=== PATIENT | male | born 1965 | race Caucasian/White ===

== ENCOUNTER 2023-04-26 06:37 | Outpatient (CLI) | payer BC, SELFPAY ==
--- NOTE | ~2023-04-26 | MR_ITS ---
MRI of the left hand CLINICAL HISTORY: Pain TECHNIQUE: Coronal T1-weighted and T2 fat-sat images, axial T1-weighted, T2 fat-sat, and T1 fat-sat i mages, and sagittal T1-weighted and T2 fat-sat images were acquired. FINDINGS: No fracture, marrow edema, or osteomyelitis identified. There are scattered mild degenerati ve changes, including at the first CMC joint, first metacarpophalangeal joint, fourth PIP joint, and second DIP joint. No joint effusion identified. Flexor and extensor tendons are intact. Intrinsic musculature of the hand appears unremarkable. No so ft tissue mass or fluid collection seen. IMPRESSION: Scattered areas of mild degenerative joint disease, as detailed above. Reviewed, dictated and finalized at location M.
== END 2023-04-26 06:38 | disposition home or self-care (01) ==
PROVIDERS: PCP Family Medicine; Visit Provider Orthopaedic Surgery
DX: M19.042 Primary osteoarthritis, left hand (principal)
CPT/HCPCS: 73218

== ENCOUNTER 2025-07-11 17:06 | Emergency (ER) | payer SELFPAY ==
--- NOTE | ~2025-07-11 | CT_ITS ---
CT abdomen pelvis w con INDICATION:right inguinal hernia enlarged. . COMPARISON: None. TECHNIQUE: Axial images of the abdomen and pelvis were obtained following infusion of 100 mL Isovue 300. Dose optimization technique was utilized. FINDINGS: The lung bases are clear. Fatty infiltration of the liver is noted. No intrahepatic mass or ductal dilatation is evident. The patient has had a cholecystectomy. The pancreas and spleen are normal in appearance. The adrenal glands are symmetric in size. The kidneys demonstrate symmetric uptake and excretion of contrast. No cystic mass is evident. There is no solid mass. There is no hydronephrosis. Evaluation of the stomach and bowel loops are limited due to lack of oral contrast. The appendix is normal in appearance. Large right inguinal hernia containing a long segment of small bowel loops. There are no bowel obstruction. There is colonic diverticulosis with no evidence of acute diverticulitis. The bladder and rectum are normal. No free intraperitoneal fluid or air is evident. There is no significant retroperitoneal lymphadenopathy. The aorta, visceral vessels and renal arteries demonstrate normal caliber and patency. The lower thoracic and lumbar vertebrae are in normal alignment. IMPRESSION: Large right inguinal hernia containing large segment of small bowel loops. All CT scans at this facility are performed using low dose modulation techniques as appropriate to perform exam including the following: automated exposure control; use of iterative reconstruction technique; adjustment of the mA and/or kV according to patient size (this includes techniques or standardized protocols for targeted exams where dose is matched to indication/reason for exam). Reviewed, dictated and finalized at location S. IMPRESSION: Large right inguinal hernia containing large segment of small bowel loops. All CT scans at this facility are performed using low dose modulation techniqu es as appropriate to perform exam including the following: automated exposure c ontrol; use of iterative reconstruction technique; adjustment of the mA and/or kV according to patient size (this includes techniques or standardized protocol s for targeted exams where dose is matched to indication/reason for exam).
[2025-07-11 17:12] VITALS: BP 152/78; PULSE 87; RESP 16; TEMP 36.3; O2SAT 99
--- NOTE | 2025-07-11 17:45 | ED_ITS ---
HPI - General Adult General Chief complaint: Unspecified <Katarina Menchaca January, - Last Filed: 07/11/25 17:52> Stated complaint: hernia pain <Katarina Menchaca January, - Last Filed: 07/11/25 17:52> Time Seen by Provider: 07/11/25 17:45 <Katarina Menchaca January, - Last Filed: 07/11/25 17:52> Focused HPI: Madhu Gomez is a 60 y/o male who presents with reports of having a hx of inguinal hernia for quite some time, and over the past week has had increased pain and pressure in to his testicles, He now has enlarged right sided testicles and he saw his PCP today and they are concerned that he has intestine going through the hernia and possible intestinal strangulation. Pain is to the right testicle and lower abdomen , no nausea/vomiting, no fever chills. Last BM was this AM and normal Still able to pass gas He states having difficulty urinating this week related to the increased pressure/pain GENERAL: well-nourished, and in no acute distress. HEAD: Normocephalic, atraumatic. CHEST: Clear to auscultation. ?No respiratory distress. HEART: Regular rate and rhythm.? NEURO: ?Alert and oriented x3. Patient screened in triage and initial orders placed.? ?Additional care and disposition to be based upon?diagnostic testing and treatment. <Katarina Menchaca January, - Last Filed: 07/11/25 17:52> Related Data Allergies/adverse reactions: Allergies Allergy/AdvReac Type Severity Reaction Status Date / Time No Known Allergies Allergy Verified 07/11/25 17:08 <Katarina Menchaca January, - Last Filed: 07/11/25 17:52> Review of Systems 2 Review of Systems: As reviewed above in HPI <Brady Farah MD - Last Filed: 07/12/25 06:49> PMFSH Past Medical History Medical History: Medical History Arthritis of left hand Mass of finger of left hand Left hand pain Hallux rigidus of left foot Acquired cavovarus deformity of both feet Headache Dizziness <Katarina Menchaca January,N - Last Filed: 07/11/25 17:52> Family History Family History: Family History Mother Hypertension Family history of diabetes mellitus in first degree relative Sibling Hypertension Father Family history of lung cancer Other Diabetes mellitus Family history of arthritis Family history of malignant neoplasm <Katarina Ray, TELEPHONE OPERATORS SUPERVISOR - Last Filed: 07/11/25 17:52> Social History Social History: Social History Smoking status: Never smoker Second hand tobacco smoke exposure: No Alcohol intake: current Substance use: never Substance use type: does not use Lack of Transportation: No Lack of Food: Never True Current Housing: I Have Housing Concerned About Future Housing: No Difficulty Paying Gas/Electric Bills: No Difficulty Paying for Meds: No Currently Unemployed: No Education: Bachelor's Degree Difficulty w/ Childcare or Family Care: No Living arrangements: with family Occupation/Education: occupation Gender identity (if verbalized by the patient): Male Sexual Orientation (if Verbalized by the Patient): Straight or Heterosexual <Katarina Ray, TELEPHONE OPERATORS SUPERVISOR - Last Filed: 07/11/25 17:52> Exam 2 Narrative: GENERAL: [Well-appearing, well-nourished, and in no acute distress.] HEAD: [Normocephalic, atraumatic.] EYES: [PERRLA and EOMI.] ENT: Nares clear, no rhinorrhea or epistaxis. Mucous membranes moist. NECK: Supple. CHEST: [Clear to auscultation. No respiratory distress.] HEART: [Regular rate and rhythm]. No murmur heard. [Normal peripheral pulses.] ABDOMEN: [Soft, nondistended], tender to palpation the right inguinal region with a palpable defect. Inguinal hernia noted that is soft without any overlying skin changes and reducible but recurs easily. No signs of strangulation or incarceration., [No rigidity or guarding] EXTREMITIES: Normal range of motion. [No edema.] SKIN: Warm, dry, no rash. NEURO: [No focal deficits]. Alert and oriented [x3.] PSYCH: [Normal mood and affect.] <Brady Farah MD - Last Filed: 07/12/25 06:49> Course Vital Signs Vital signs: Vital Signs Temperature 36.3 C L 07/11/25 17:12 Pulse Rate 87 07/11/25 17:12 Respiratory Rate 16 07/11/25 17:12 Blood Pressure 152/78 H 07/11/25 17:12 Pulse Oximetry 99 07/11/25 17:12 Temperature 36.3 C L 07/11/25 17:12 Pulse Rate 87 07/11/25 17:12 Respiratory Rate 16 07/11/25 17:12 Blood Pressure 152/78 H 07/11/25 17:12 Pulse Oximetry 99 07/11/25 17:12 <Katarina Ray, TELEPHONE OPERATORS SUPERVISOR - Last Filed: 07/11/25 17:52> Vital Signs Temperature 36.3 C L 07/11/25 17:12 Pulse Rate 87 07/11/25 17:12 Respiratory Rate 16 07/11/25 17:12 Blood Pressure 152/78 H 07/11/25 17:12 Pulse Oximetry 99 07/11/25 17:12 Temperature 36.3 C L 07/11/25 17:12 Pulse Rate 87 07/11/25 17:12 Respiratory Rate 16 07/11/25 17:12 Blood Pressure 152/78 H 07/11/25 17:12 Pulse Oximetry 99 07/11/25 17:12 <Brady Farah MD - Last Filed: 07/12/25 06:49> Medical Decision Making MDM Narrative Medical decision making narrative: 60 y/o male who presents with reports of having a hx of inguinal hernia for quite some time, and over the past week has had increased pain and pressure in to his testicles, He now has enlarged right sided testicles and he saw his PCP today and they are concerned that he has intestine going through the hernia and possible intestinal strangulation. Pain is to the right testicle and lower abdomen , no nausea/vomiting, no fever chills. Patient has a right-sided inguinal hernia that has no signs of strangulation or incarceration. Reducible with palpation and manual pressure through inguinal hernia defect that is palpable. Recurred spontaneously with pressure. Hemodynamically stable. No signs of incarceration but laboratory studies were obtained as well as a CT scan with contrast. Workup shows no leukocytosis or anemia. Normal platelet count. Normal LFTs and electrolytes. Negative lactic acid. Normal glucose. Urinalysis unremarkable. CT scan shows inguinal hernia with segments of small bowel loops but large and no signs of obstruction. Spoke to the general surgeon Dr. Rhodes for options for treatment plan. Patient will be able to be seen by General surgery on Monday for elective hernia evaluation repair. Patient relayed this and comfort with the plan of care and safely discharged home with pain control medications. <Brady Farah MD - Last Filed: 07/12/25 06:49> Medical Records Medical records reviewed: Yes I reviewed the external patient's medical records. <Brady Farah MD - Last Filed: 07/12/25 06:49> Vital Signs Vital Signs: Vital Signs Temperature 36.3 C L 07/11/25 17:12 Pulse Rate 87 07/11/25 17:12 Respiratory Rate 16 07/11/25 17:12 Blood Pressure 152/78 H 07/11/25 17:12 Pulse Oximetry 99 07/11/25 17:12 Temperature 36.3 C L 07/11/25 17:12 Pulse Rate 87 07/11/25 17:12 Respiratory Rate 16 07/11/25 17:12 Blood Pressure 152/78 H 07/11/25 17:12 Pulse Oximetry 99 07/11/25 17:12 <Katarina Ray APRN - Last Filed: 07/11/25 17:52> Vital Signs Temperature 36.3 C L 07/11/25 17:12 Pulse Rate 87 07/11/25 17:12 Respiratory Rate 16 07/11/25 17:12 Blood Pressure 152/78 H 07/11/25 17:12 Pulse Oximetry 99 07/11/25 17:12 Temperature 36.3 C L 07/11/25 17:12 Pulse Rate 87 07/11/25 17:12 Respiratory Rate 16 07/11/25 17:12 Blood Pressure 152/78 H 07/11/25 17:12 Pulse Oximetry 99 07/11/25 17:12 <Brady Farah MD - Last Filed: 07/12/25 06:49> Lab Data Lab results reviewed: Yes I reviewed the patient's lab results. <Brady Farah MD - Last Filed: 07/12/25 06:49> Result diagrams: 07/11/25 18:03 07/11/25 18:04 <Katarina Ray, TELEPHONE OPERATORS SUPERVISOR - Last Filed: 07/11/25 17:52> Labs: Lab Results 07/11/25 07/11/25 07/11/25 Range/Units 18:03 18:04 18:53 WBC 6.5 (4.5-10.0) K/mm3 RBC 5.22 (4.6-6.20) M/mm3 Hgb 15.7 (14.0-18.0) g/dL Hct 45.3 (42.0-52.0) % MCV 86.8 (80-100) fl MCH 30.1 (26-34) pg MCHC 34.7 (32-36) g/dl RDW 12.2 (11.5-14.5) % Plt Count 201 (150-375) k/mm3 MPV 9.5 (7.4-10.4) fl Immature Gran % (Auto) 0.5 (0-0.5) % Neut % (Auto) 61.0 (45.5-73.1) % Lymph % (Auto) 25.2 (18.3-44.2) % [place] % (Auto) 8.7 H (2.6-8.5) % Eos % (Auto) 3.8 (0-4.4) % Baso % (Auto) 0.8 (0.2-1.2) % Lymph # (Auto) 1.65 (0.9-3.2) K/mm3 [place] # (Auto) 0.6 (0.1-0.6) K/mm3 Eos # (Auto) 0.3 (0-0.3) K/mm3 Baso # (Auto) 0.1 (0.0-0.1) K/mm3 Abs Immat Gran (auto) 0.03 (0.00-0.031) K/mm3 Absolute Neuts (auto) 4.0 (1.3-6.7) K/mm3 Absolute Nucleated RBC 0.000 (0.0-0.012) K/mm3 Nucleated RBC % 0.0 (0.0-0.2) % PT 13.7 (11.1-14.7) Seconds INR 1.1 APTT 27.6 (22.3-36.8) Seconds Sodium 137 (137-145) mmol/L Potassium 3.9 (3.4-5.0) mmol/L Chloride 101 (98-107) mmol/L Carbon Dioxide 28 (22-30) mmol/L Anion Gap 8 (4-12) mmol/L BUN 14 (9-20) mg/dL Creatinine 0.84 (0.7-1.3) mg/dL Estim Creat Clear Calc 111 ml/min Estimated GFR > 60 (59 - ) Glucose 94 (65-110) mg/dL Lactic Acid 1.0 (0.7-2.0) mmol/L Calcium 9.1 (8.4-10.2) mg/dL Total Bilirubin 0.5 (0.2-1.3) mg/dL AST 52 (17-59) U/L ALT 70 H (6-50) U/L Alkaline Phosphatase 68 (38-126) U/L Total Protein 8.3 H (6.3-8.2) g/dL Albumin 4.6 (3.5-5.1) g/dL Lipase 142 (23-300) U/L Urine Color Yellow (Yellow) Urine Appearance Clear (Clear) Urine pH 6.0 (5.0-9.0) Ur Specific [place] > 1.045 H (1.001-1.035) Urine Protein Negative (Negative) mg/dL Urine Glucose (UA) Negative (Negative) mg/dL Urine Ketones Negative (Negative) mg/dL Ur Blood (Man) Negative (Negative) Urine Nitrate Negative (Negative) Urine Bilirubin Negative (Negative) Urine Urobilinogen 0.2 (<2.0) mg/dL Leukocyte Esterase Rfl Negative (Negative) BUZZ/UL <Katarina Ray, TELEPHONE OPERATORS SUPERVISOR - Last Filed: 07/11/25 17:52> Lab Results 07/11/25 07/11/25 07/11/25 Range/Units 18:03 18:04 18:53 WBC 6.5 (4.5-10.0) K/mm3 RBC 5.22 (4.6-6.20) M/mm3 Hgb 15.7 (14.0-18.0) g/dL Hct 45.3 (42.0-52.0) % MCV 86.8 (80-100) fl MCH 30.1 (26-34) pg MCHC 34.7 (32-36) g/dl RDW 12.2 (11.5-14.5) % Plt Count 201 (150-375) k/mm3 MPV 9.5 (7.4-10.4) fl Immature Gran % (Auto) 0.5 (0-0.5) % Neut % (Auto) 61.0 (45.5-73.1) % Lymph % (Auto) 25.2 (18.3-44.2) % [place] % (Auto) 8.7 H (2.6-8.5) % Eos % (Auto) 3.8 (0-4.4) % Baso % (Auto) 0.8 (0.2-1.2) % Lymph # (Auto) 1.65 (0.9-3.2) K/mm3 [place] # (Auto) 0.6 (0.1-0.6) K/mm3 Eos # (Auto) 0.3 (0-0.3) K/mm3 Baso # (Auto) 0.1 (0.0-0.1) K/mm3 Abs Immat Gran (auto) 0.03 (0.00-0.031) K/mm3 Absolute Neuts (auto) 4.0 (1.3-6.7) K/mm3 Absolute Nucleated RBC 0.000 (0.0-0.012) K/mm3 Nucleated RBC % 0.0 (0.0-0.2) % PT 13.7 (11.1-14.7) Seconds INR 1.1 APTT 27.6 (22.3-36.8) Seconds Sodium 137 (137-145) mmol/L Potassium 3.9 (3.4-5.0) mmol/L Chloride 101 (98-107) mmol/L Carbon Dioxide 28 (22-30) mmol/L Anion Gap 8 (4-12) mmol/L BUN 14 (9-20) mg/dL Creatinine 0.84 (0.7-1.3) mg/dL Estim Creat Clear Calc 111 ml/min Estimated GFR > 60 (59 - ) Glucose 94 (65-110) mg/dL Lactic Acid 1.0 (0.7-2.0) mmol/L Calcium 9.1 (8.4-10.2) mg/dL Total Bilirubin 0.5 (0.2-1.3) mg/dL AST 52 (17-59) U/L ALT 70 H (6-50) U/L Alkaline Phosphatase 68 (38-126) U/L Total Protein 8.3 H (6.3-8.2) g/dL Albumin 4.6 (3.5-5.1) g/dL Lipase 142 (23-300) U/L Urine Color Yellow (Yellow) Urine Appearance Clear (Clear) Urine pH 6.0 (5.0-9.0) Ur Specific [place] > 1.045 H (1.001-1.035) Urine Protein Negative (Negative) mg/dL Urine Glucose (UA) Negative (Negative) mg/dL Urine Ketones Negative (Negative) mg/dL Ur Blood (Man) Negative (Negative) Urine Nitrate Negative (Negative) Urine Bilirubin Negative (Negative) Urine Urobilinogen 0.2 (<2.0) mg/dL Leukocyte Esterase Rfl Negative (Negative) BUZZ/UL <Brady Farah MD - Last Filed: 07/12/25 06:49> Imaging Data Attestation: I personally reviewed and interpreted this imaging study as follows: < Brady Farah MD - Last Filed: 07/12/25 06:49> My impression: Impressions Abdomen/Pelvis CT 07/11/25 18:28 IMPRESSION: Large right inguinal hernia containing large segment of small bowel loops. All CT scans at this facility are performed using low dose modulation techniques as appropriate to perform exam including the following: automated exposure control; use of iterative reconstruction technique; adjustment of the mA and/or kV according to patient size (this includes techniques or standardized protocols for targeted exams where dose is matched to indication/reason for exam). <Brady Farah MD - Last Filed: 07/12/25 06:49> Discharge Plan Discharge Clinical Impression: Reducible right inguinal hernia <Katarina Ray APRN - Last Filed: 07/11/25 17:52> Patient Disposition: Home <Katarina Ray TELEPHONE OPERATORS SUPERVISOR - Last Filed: 07/11/25 17:52> Condition: Stable <Katarina Ray TELEPHONE OPERATORS SUPERVISOR - Last Filed: 07/11/25 17:52> Instructions: Antibiotic Form, Inguinal Hernia (ED), Inguinal Hernia Repair (DC) <Katarina Menchaca January, Last Filed: 07/11/25 17:52> Additional Instructions: CT scan shows nonobstructing inguinal hernia. Hernia appears to be reducible although very large and recurs. Laboratory studies are normal. No signs of any urgent or emergent concerns and we have spoken to our surgeon Dr. Rhodes will see you early next week on Monday for clinic evaluation and likely operative intervention this week based on that visit. We will send you home with some pain control medications for breakthrough pain. Wear a hernia support belt and restrict activities to light duty and prevent any further lifting, straining or bending as able. Return with any worsening pain, worsening swelling, discoloration to the skin, inability to pass gas or go the bathroom or intractable nausea/pain. <Katarina Menchaca January, Last Filed: 07/11/25 17:52> Patient Language: Malawian <Katarina Menchaca January, Last Filed: 07/11/25 17:52> Prescriptions: New ibuprofen 800 mg tablet 800 mg PO TID PRN (Reason: pain) Qty: 30 0RF acetaminophen [Tylenol Extra Strength] 500 mg tablet 1,000 mg PO TID PRN (Reason: pain) Qty: 30 0RF oxycodone 5 mg tablet 5 mg PO Q8H PRN (Reason: pain) Qty: 14 0RF No Action melatonin 3 mg tablet 3 mg PO .qhs Qty: 30 0RF tramadol 50 mg tablet 50 mg PO Q6H PRN (Reason: pain) Qty: 30 0RF cyclobenzaprine 10 mg tablet See Rx Instructions .ROUTE .COMPLEX Qty: 15 0RF Dose Instruction: TAKE 1 TABLET BY MOUTH 1 TIME NEEDED FOR MUSCLE SPASM Rx Instructions: TAKE 1 TABLET BY MOUTH 1 TIME NEEDED FOR MUSCLE SPASM <Katarina Menchaca January, Last Filed: 07/11/25 17:52> Follow-up/Referrals: Shad Taveras MD [Primary Care Provider, Family Practice] Masha Rhodes MD [Physician, General Surgery] - 3 Days Referral Note: Inguinal hernia right-sided <Katarina Menchaca January, Last Filed: 07/11/25 17:52> Time of Disposition: 21:04 <Katarina Menchaca January, - Last Filed: 07/11/25 17:52> 21:04 <Brady Farah MD - Last Filed: 07/12/25 06:49>
[2025-07-11 18:11] LABS: Hematocrit 45.3 % (42.0-52.0); Hemoglobin 15.7 g/dL (14.0-18.0); Immature Granulocyte Percent A 0.5 % (0-0.5); Lymphocytes Absolute Auto 1.65 K/mm3 (0.9-3.2); Mean Corpuscular HGB Conc 34.7 g/dl (32-36); Mean Corpuscular Hemoglobin 30.1 pg (26-34); Mean Corpuscular Volume 86.8 fl (80-100); Nucleated Red Blood Cells Absolute Auto 0.000 K/mm3 (0.0-0.012); Nucleated Red Blood Cells Perc 0.0 % (0.0-0.2); Platelet Count Result 201 k/mm3 (150-375); Red Blood Count 5.22 M/mm3 (4.6-6.20); White Blood Count 6.5 K/mm3 (4.5-10.0)
[2025-07-11 18:20] LABS: INR 1.1; Prothrombin Time 13.7 Seconds (11.1-14.7)
[2025-07-11 18:21] LABS: Alanine Aminotransferase 70 U/L (6-50); Albumin Level 4.6 g/dL (3.5-5.1); Alkaline Phosphatase 68 U/L (38-126); Anion Gap 8 mmol/L (4-12); Aspartate Amino Transferase 52 U/L (17-59); Bilirubin,Total 0.5 mg/dL (0.2-1.3); Blood Urea Nitrogen 14 mg/dL (9-20); Calcium 9.1 mg/dL (8.4-10.2); Carbon Dioxide 28 mmol/L (22-30); Chloride 101 mmol/L (98-107); Estimated CRCL calculation 111 ml/min; Estimated Glomerular Filt Rate > 60; Glucose 94 mg/dL (65-110); Lipase 142 U/L (23-300); Potassium 3.9 mmol/L (3.4-5.0); Sodium 137 mmol/L (137-145); Total Protein 8.3 g/dL (6.3-8.2)
[2025-07-11 18:22] LABS: Partial Thromboplastin Time 27.6 Seconds (22.3-36.8)
[2025-07-11 19:05] LABS: Add Urine Microscopic? NO; Appearance Urine Clear (Clear); Glucose Urine UA Negative (Negative); Leukocyte Esterase Ur Negative LEU/UL (Negative); Nitrate Urine Negative (Negative); Specific Grav Ur > 1.045 (1.001-1.035)
== END 2025-07-11 21:17 | disposition home or self-care (01) ==
PROVIDERS: Nurse Practitioner Family; Emergency Provider Student in an Organized Health Care Education/Training Program; PCP Family Medicine
DX: K40.90 Unilateral inguinal hernia, without obstruction or gangrene, not specified as recurrent (principal)
CPT/HCPCS: 36415; 74177; 80053; 81003; 83605; 83690; 85025; 85610; 85730; 99284; Q9967

== ENCOUNTER 2025-07-16 13:32 | Outpatient (CLI) | payer SELFPAY | END 2025-07-16 13:33 | disposition home or self-care (01) | LOC: ANHSURGERY 13:35 | PROVIDERS: PCP Family Medicine; Visit Provider Surgery | DX: Z01.818 Encounter for other preprocedural examination (principal); K40.20 Bilateral inguinal hernia, without obstruction or gangrene, not specified as recurrent | CPT/HCPCS: 36415; 86850; 86900; 86901 ==

== ENCOUNTER 2025-07-17 00:41 | Day surgery (SDC) | payer SELFPAY ==
--- NOTE | 2025-07-15 14:50 | SUR.PREOP ---
[facility] has started construction of its new state of the art ER which will open Spring 2026. With this, we anticipate parking may be a challenge for some our surgical patients and families. Parking spaces are limited but are available for all Surgical, obstetrics, and ER patients sharing this lot. If you arrive and find you are having a hard time finding a parking space, please note that we understand the challenges, please drive around the hospital and park near Hospital Entrance 1. When you enter this entrance, you can ask a volunteer to direct or take you back to the surgical waiting area to check in. We appreciate everyone?s understanding of these expected challenges while we build for your future. Report to the Outpatient Waiting Room, entrance under the green pavilion located off [address], at time _930AM_ on date _07/17/25___. Planned Procedure Time: _1130AM___.? Time changes happen often and if your time is changed the preop area will call you the afternoon before. - You and your visitor will be asked to self-screen and do not enter if you have any COVID symptoms. Please call surgeon if you need to reschedule. - A mask is optional within the hospital at this time. Patients may have clear liquids (water, carbonated beverages, clear teas, apple juice) until 3 hours prior to surgery with a maximum of 20 ounces. - No food from midnight until time of surgery and no smoking, or chewing tobacco (or any form of nicotine). No chewing gum, candy or mints. Take only the following medications with a SIP of water on the morning of surgery: _(Tylenol or oxycodone or tramadol) and cyclobenzaprine all if needed._ DO NOT STOP ANY OF YOUR OTHER PRESCRIPTION MEDICATIONS PRIOR TO SURGERY EXCEPT THE FOLLOWING Hold all vitamins and supplements for 3 days per anesthesiologist. Medications to discontinue per physician _Consult provider on Ibuprofen___ Date to take last dose of multivitamin: Immediately today 07/15/25 Please no make-up, nail cameroonian, hairspray, perfume, deodorant, or body powder the day of surgery.? No jewelry (including any body piercings) or valuables the day of surgery, leave them at home.? Please take a shower or bath the night before, or the morning of, surgery with an antibacterial soap.? Wear comfortable, loose fitting clothing.? Children are encouraged to wear pajamas. - Jewelry must be removed prior to entering the operating room.? Rings and piercings that are not removed may be cut off. - The hospital will not accept responsibility for valuables.? - Please leave all valuables, including medications, at home the day of surgery. If you are going home after surgery, a licensed lifter/driver must drive you home.? - NO public transportation without another adult if you receive anesthesia. - We recommend that an adult stay with you for 24 hours following discharge. - We also recommend that you do not drive, make important decision, drink alcoholic beverages, or take any drugs that were not prescribed by your health care provider for at least 24 hours after your discharge time. Follow any additional instructions given to you from your surgeon. Telephone instructions given to __Madhu__and asked if any additional questions and then verbalized understanding. Patient advised to call surgeon office or pre surgery nurse liaison [phone] if any additional questions.
[2025-07-15 14:51] VITALS: BMI 40.2
[2025-07-17] VITALS (11 sets, daily range): BP systolic 125–170; BP diastolic 70–86; PULSE 69–90; RESP 12–24; TEMP 36.8–36.9; O2SAT 94–100
--- NOTE | 2025-07-17 07:39 | WPDHPUPDATE1 ---
History and Physical Update Update Date/Time: 07/17/25 07:39 History and Physical has been reviewed, including an updated exam of the patient. There are NO changes in the patient's condition. Risks, benefits, and alternatives have been discussed and questions answered. Patient agrees to proceed with procedure.
[2025-07-17] MEDS: ACETAMINOPHEN 500 MG TABLET 1000 MG PO (08:10)
[2025-07-17] MEDS: LACTATED RINGERS 1,000 ML 30 ML IV CONT ×3 (08:15→13:58)
[2025-07-17] MEDS: KETOROLAC 15 MG/ML VIAL (*BKC) IV PUSH (08:15)
--- NOTE | 2025-07-17 09:03 | P.PNAN_ITS ---
Anes - Initial Pre Proc Eval Procedure: Operation Date: 07/17/25 09:30 Proposed Procedures p Robotic Bilateral Inguinal Hernia Repair with Mesh - Masha Rhodes MD Date/Time: 07/17/25 09:03 Surgeon: Masha Rhodes MD Pre Op Diagnosis: Avelino Ing Hernia Patient Data Age: 60 Gender: M Height: 1.78 m Weight: 130.9 kg Last Vital Signs Temp 36.9 C 07/17/25 07:50 Pulse 75 07/17/25 07:50 Resp 16 07/17/25 07:50 BP 126/86 07/17/25 07:50 Pulse Ox 97 07/17/25 07:50 O2 Del Method Room Air 07/17/25 07:50 Allergies Allergy/AdvReac Type Severity Reaction Status Date / Time No Known Allergies Allergy Verified 07/17/25 08:17 Home Medications ?Medication ?Instructions ?Recorded ?Confirmed ?Type melatonin 3 mg tablet 3 mg PO .qhs sleep #30 tabs 01/22/20 07/15/25 Rx cyclobenzaprine 10 mg tablet See Rx Instructions .Rout e 10/15/24 07/15/25 Rx .COMPLEX #15 tabs tramadol 50 mg tablet 50 mg PO Q6H PRN pain #30 ta bs 01/23/25 07/15/25 Rx acetaminophen 500 mg tablet 1,000 mg (2 x 500 mg) PO T ID PRN 07/11/25 07/15/25 Rx (Tylenol Extra Strength) pain #30 tabs ibuprofen 800 mg tablet 800 mg PO TID PRN pain #30 t abs 07/11/25 07/15/25 Rx oxycodone 5 mg tablet 5 mg PO Q8H PRN pain #14 tab s 07/11/25 07/17/25 Rx multivitamin (Daily Multi-Vitamin 1 tablet PO DAILY 07/17/25 History tablet) Patient hx anesthesia problems: none Family hx anesthesia problems: none Results Review: All pre-operative results and documents have been reviewed as part of the pre- operative evaluation. FOR[facility]LY [facility] Past Medical History Medical History Arthritis of left hand Mass of finger of left hand Left hand pain Hallux rigidus of left foot Acquired cavovarus deformity of both feet Headache Dizziness Surgical History Surgical History Hx of colonoscopy Hx laparoscopic cholecystectomy 2009 Family History Family History Mother Hypertension Family history of diabetes mellitus in first degree relative Sibling Hypertension Father Family history of lung cancer Heart problem Grandparent Heart problem Other Diabetes mellitus Family history of arthritis Family history of malignant neoplasm Social History Social History Smoking status: Never smoker Second hand tobacco smoke exposure: No Alcohol intake: current Substance use: never Substance use type: does not use Lack of Transportation: No Lack of Food: Never True Current Housing: I Have Housing Concerned About Future Housing: No Difficulty Paying Gas/Electric Bills: No Difficulty Paying for Meds: No Currently Unemployed: No Education: Bachelor's Degree Difficulty w/ Childcare or Family Care: No Living arrangements: with family Occupation/Education: occupation Gender identity (if verbalized by the patient): Male Sexual Orientation (if Verbalized by the Patient): Straight or Heterosexual Spiritual care concerns: No Anes - Eval Final PreProcedure Day of Procedure 07/17/25 09:03 Patient weight: morbidly obese Heart: regular rate and rhythm Lungs: clear to auscultation Airway: Mallampati scale class 1 Neurological: alert and oriented Last oral intake: >/= 8 hours ASA classification: III Emergent: no Anesthetic plan: proceed Anesthesia type and monitoring: general ETT and standard monitoring Results Review: All pre-operative results and documents have been reviewed as part of the pre- operative evaluation. Informed Consent: The patient's anesthetic plan and its attendant risks and benefits were discussed with the patient/family/POA. Questions were solicited and answers provided to the satisfaction of the patient/family/POA.
[2025-07-17] MEDS: ceFAZolin 3 GM/D5W 100 ML 100 ML IVPB (09:40)
[2025-07-17] MEDS: BUPIVACAINE/EPINEPHRINE 0.5% 30 ML VIAL INFILTRATE (10:15)
--- NOTE | 2025-07-17 12:26 | W.PM.PROC2 ---
Procedure Note - Detailed Date of Procedure 07/17/25 Pre-op Diagnosis incarcerated right inguinal hernia, left inguinal hernia Post-op Diagnosis Same Procedure Performed robotic assisted repair incarcerated right inguinal hernia with mesh, left inguinal hernia with mesh Surgeon Masha Rhodes MD Anesthesia General and Local Indications 60-year-old male presenting to the office after visit to the emergency department with a large, incarcerated right inguinal hernia. On examination in the office, the patient was found also have a smaller left inguinal hernia. Findings Indirect, incarcerated right inguinal hernia with small bowel, indirect left inguinal hernia Description of Procedure Patient was brought into the operating room and placed in the supine position. After adequate induction of general anesthesia, the patient was prepped and draped in normal sterile fashion. A time-out was then done to verify the patient's identity, as well as the procedure being performed. I began by making a 8 mm incision in the supraumbilical region, a Veress needle was then placed into the peritoneal cavity. CO2 gas was then insufflated and after adequate pneumoperitoneum was achieved, the Veress needle was removed. I then placed an 8 mm trocar through this incision. I then placed the endoscope through this trocar site and under direct visualization placed 2 further 8 mm ports in the right and left mid abdomen. The [employer] robot was then docked to the 3 trocar sites. I then scrubbed out and went to the robotic console. Upon examining the pelvis, it was noted that the patient had a large, incarcerated right inguinal hernia. The left side was examined and a moderate-sized hernia defect was noted. There was noted to be incarcerated small bowel within the right-sided hernia sac. This was gently reduced back into the peritoneal cavity. The bowel was then examined and noted to be viable no signs of gross pathology. I began by making a preperitoneal flap approximately 6 cm superior to the right sided defect. This flap was carried medially past the umbilical ligaments and laterally to the transversalis. It then began dissection of my medial compartment taking this down to the pubic tubercle. I then began the lateral dissection taking this down to the transversalis fascia. Once these compartments were achieved, I began dissection around the cord structures. A large sized indirect hernia was noted at this point. Using careful dissection, was able to reduce indirect hernia sac off the cord structures. Once this was adequately done, I went ahead and placed a large piece of 3D Max mesh into the abdominal cavity. The mesh was carefully positioned, centering the center of the mesh over the indirect defect. Once this was done, I was very satisfied with our repair. Using 3-0 Vicryl sutures, I tacked the mesh medially to Rodrigo's ligament. Two lateral sutures were placed from the mesh to the transversalis fascia. I then began on the left side by making a preperitoneal flap approximately 6 cm superior to the left sided defect. This flap was carried medially past the umbilical ligaments and laterally to the transversalis. It then began dissection of my medial compartment taking this down to the pubic tubercle. I then began the lateral dissection taking this down to the transversalis fascia. Once these compartments were achieved, I began dissection around the cord structures. A moderate-sized indirect hernia was noted at this point. Using careful dissection, was able to reduce indirect hernia sac off the cord structures. Once this was adequately done, I went ahead and placed a large piece of 3D Max mesh into the abdominal cavity. The mesh was carefully positioned, centering the center of the mesh over the indirect defect. Once this was done, was very satisfied with our repair. Using 3-0 Vicryl sutures, I tacked the mesh medially to Rodrigo's ligament. Two lateral sutures were placed from the mesh to the transversalis fascia.I then closed the peritoneal flap bilaterally with running 2.0 V Lock suture x 2. The abdomen was then desufflated, and all ports were removed. All incisions were then closed with the 4.0 monocryl suture. Dermabond was placed on each wound. The patient tolerated the procedure well, was extubated in the operating room postoperatively, and will now be transferred to the recovery room in stable condition. Implants bilateral large 3DMax mesh Estimated Blood Loss 10 Drains No Packing No Pathology None sent Complications No immediate complications Condition Stable Disposition PACU [facility] Billing Surgery - Charge Forward: Surgery Billing
[2025-07-17] MEDS: fentaNYL CITRATE INJ (*CRX) 100 MCG/2 ML VIAL 25 MCG IV PUSH ×4 (13:48→13:58)
== END 2025-07-17 15:00 | disposition home or self-care (01) ==
PROVIDERS: PCP Family Medicine; Visit Provider Surgery
PROC: 8E0Y4CZ Robotic Assisted Procedure of Lower Extremity, Percutaneous Endoscopic Approach (ICD-10-PCS; CPT 49650; principal; 2025-07-17 09:30)
DX: K40.20 Bilateral inguinal hernia, without obstruction or gangrene, not specified as recurrent (principal); M62.08 Separation of muscle (nontraumatic), other site; M19.042 Primary osteoarthritis, left hand; E66.01 Morbid (severe) obesity due to excess calories; Z68.41 Body mass index [BMI] 40.0-44.9, adult; Z79.891 Long term (current) use of opiate analgesic; Z79.1 Long term (current) use of non-steroidal anti-inflammatories (NSAID); Z90.49 Acquired absence of other specified parts of digestive tract; Z80.1 Family history of malignant neoplasm of trachea, bronchus and lung; Z82.49 Family history of ischemic heart disease and other diseases of the circulatory system
CPT/HCPCS: 49650; S2900; A9270; C1781; J0690; J1100; J1171; J1885; J2003; J2250; J2405; J2704; J3010; J7030; J7120; Q4137

== ENCOUNTER 2025-07-25 19:03 | Emergency (ER) | payer SELFPAY ==
--- NOTE | ~2025-07-25 | US_ITS ---
US venous doppler LE RT INDICATION: Right lower extremity pain and swelling. COMPARISON: None. TECHNIQUE: The deep veins of the right lower extremity were evaluated with Duplex Doppler, color Doppler, and high-resolution B-mode sonography. Evaluated veins include the common femoral, femoral, and popliteal veins. The calf veins were also evaluated. Compression and augmentation maneuvers were performed. FINDINGS: The deep veins of the right lower extremity were compressible and demonstrated spontaneous phasic waveforms with an appropriate response to augmentation maneuvers. The visualized calf veins were patent. IMPRESSION: There was no sonographic evidence of deep vein thrombosis in the right lower extremity. Reviewed, dictated and finalized at location S. IMPRESSION: There was no sonographic evidence of deep vein thrombosis in the right lower ex tremity.
--- OUTSIDE RECORDS SUMMARY | 2025-07-25 19:05 | XMS_ITS ---
Author Organization Unknown ENCOUNTERS Encounter Performer Location Date Diagnosis Diagnosis Status Pre Admit [facility] [address] [place] [address] [id number] Outpatient [facility] [address] [place] [address] [id number] JAELYN Outpatient [facility] [address] [place] [address] [phone] JAELYN [facility] [address] [place] [address] [id number] JAELYN Pre Admit [facility] [address] [place] [address] [phone] Outpatient [facility] [address] [place] [address] [id number] JAELYN *Note: Encounters from your own facility or health system may be excluded. Allergies, Adverse Reactions, Alerts Allergen Type Severity Identification Date Medications Name Date Quantity Days Supplied [facility] Number
[2025-07-25 19:08] VITALS: BP 146/92; PULSE 85; RESP 18; TEMP 36.3; O2SAT 99
--- NOTE | 2025-07-25 19:14 | PC.NURSE ---
Called US to confirm that patient was able to obtain test at this time, US confirmed to place order and test will be completed out of ED.
--- NOTE | 2025-07-25 21:25 | ED.GENADULT ---
HPI - General Adult General Chief complaint: Extremity Problem,Nontraumatic Stated complaint: possible blood clot rt calf 8days sp hernia repair Time Seen by Provider: 07/25/25 19:56 History of Present Illness HPI narrative: 60-year-old male presenting with mid calf pain that radiates down to his foot. He describes it as achy and throbbing. Nothing makes it better or worse, the pain follows no pattern. He is 8 days post bilateral hernia surgery. There are no overlying skin changes and he denies numbness/tingling and fevers/chills. No known injury or trauma. Hydrocodone mildly improved his symptoms this morning. Took 600mg ibuprofen prior to ED and endorses uncertainty regarding its effectivness. Related Data Home Medications ?Medication ?Instructions ?Recorded ?Confirmed ?Last Taken ?Type multivitamin (Daily Multi-Vitamin 1 tablet PO DAILY 07/15/25 07/17/25 07/14/25 History tablet) Allergies Allergy/AdvReac Type Severity Reaction Status Date / Time No Known Allergies Allergy Verified 07/25/25 19:11 Review of Systems Review of Systems: All systems reviewed & are unremarkable except as noted in HPI and below PMFSH Past Medical History Medical History (Updated 07/25/25 @ 21:49 by KEMI Baez) Arthritis of left hand Mass of finger of left hand Left hand pain Hallux rigidus of left foot Acquired cavovarus deformity of both feet Headache Dizziness Surgical History Surgical History (Updated 07/25/25 @ 09:23 by Luda Arellano MA) Hx of right inguinal hernia repair robotic assisted repair incarcerated right inguinal hernia with mesh, left inguinal hernia with mesh Dr. Rhodes 07/17 Hx of colonoscopy Hx laparoscopic cholecystectomy 2008 Family History Family History Mother Hypertension Family history of diabetes mellitus in first degree relative Sibling Hypertension Father Family history of lung cancer Heart problem Grandparent Heart problem Other Diabetes mellitus Family history of arthritis Family history of malignant neoplasm Social History Social History Smoking status: Never smoker Second hand tobacco smoke exposure: No Alcohol intake: current Substance use: never Substance use type: does not use Lack of Transportation: No Lack of Food: Never True Current Housing: I Have Housing Concerned About Future Housing: No Difficulty Paying Gas/Electric Bills: No Difficulty Paying for Meds: No Currently Unemployed: No Education: Bachelor's Degree Difficulty w/ Childcare or Family Care: No Living arrangements: with family Occupation/Education: occupation Gender identity (if verbalized by the patient): Male Sexual Orientation (if Verbalized by the Patient): Straight or Heterosexual Spiritual care concerns: No Exam Narrative: GENERAL: Well-appearing, well-nourished, and in no acute distress. HEAD: Normocephalic, atraumatic. EYES: PERRLA and EOMI. ENT: Nares clear, no rhinorrhea or epistaxis. Mucous membranes moist. Oropharynx without tonsillar hypertrophy exudate or other lesions. Bilateral TMs pearly eagle non-bulging NECK: Supple. No adenopathy or masses. No carotid bruits or JVD CHEST: Clear to auscultation. No respiratory distress. No wheezes rales or rhonchi HEART: Regular rate and rhythm. No murmur heard. Normal peripheral pulses. ABDOMEN: Soft, nontender, nondistended, normal active bowel sounds. EXTREMITIES: Normal range of motion. No edema. SKIN: Warm, dry, no rash. NEURO: No focal deficits. Alert and oriented x3. PSYCH: Normal mood and affect Course Vital Signs Vital signs: Vital Signs Temperature 97.4 F L 07/25/25 19:08 Pulse Rate 85 07/25/25 19:08 Respiratory Rate 18 07/25/25 19:08 Blood Pressure 146/92 H 07/25/25 19:08 Pulse Oximetry 99 07/25/25 19:08 Oxygen Delivery Room Air 07/25/25 19:08 Temperature 97.4 F L 07/25/25 19:08 Pulse Rate 85 07/25/25 19:08 Respiratory Rate 18 07/25/25 19:08 Blood Pressure 146/92 H 07/25/25 19:08 Pulse Oximetry 99 07/25/25 19:08 Oxygen Delivery Room Air 07/25/25 19:08 Medical Decision Making [facility] Narrative Medical decision making narrative: 60-year-old male presenting with mid calf pain that radiates down to his foot. He describes it as achy and throbbing. Nothing makes it better or worse, the pain follows no pattern. He is 8 days post bilateral hernia surgery. There are no overlying skin changes and he denies numbness/tingling and fevers/chills. no known injury or trauma.Hydrocodone mildly improved his symptoms this morning. Took 600mg ibuprofen prior to ED and endorses uncertainty regarding its effectiveness. Doppler ultrasound was negative for DVT. Educated patient on likelihood of muscle etiology. Patient was comfortable going home alternating acetaminophen and anti-inflammatories as well as taking his prescribed Flexeril for pain management. Advised to return if symptoms worsen. Medical Records Medical records reviewed: Yes I reviewed the external patient's medical records. Vital Signs Vital Signs: Vital Signs Temperature 97.4 F L 07/25/25 19:08 Pulse Rate 85 07/25/25 19:08 Respiratory Rate 18 07/25/25 19:08 Blood Pressure 146/92 H 07/25/25 19:08 Pulse Oximetry 99 07/25/25 19:08 Oxygen Delivery Room Air 07/25/25 19:08 Temperature 97.4 F L 07/25/25 19:08 Pulse Rate 85 07/25/25 19:08 Respiratory Rate 18 07/25/25 19:08 Blood Pressure 146/92 H 07/25/25 19:08 Pulse Oximetry 99 07/25/25 19:08 Oxygen Delivery Room Air 07/25/25 19:08 Lab Data Lab results reviewed: Yes I reviewed the patient's lab results. Critical Care Time Critical Care Time Critical Care Time: No Discharge Plan Discharge Clinical Impression: Strain of right calf muscle Patient Disposition: Home Condition: Stable Additional Instructions: Return to the ER if you experience weakness, numbness, bowel/bladder incontinence, or any other symptoms that are concerning to you Rest, use ice/heat, take anti-inflammatories (Aleve, Ibuprofen, Naproxen, etc) or Tylenol as needed for pain as well as muscle relaxer (Flexeril) as needed for pain. Muscle relaxers can make you drowsy, do not drive if you take this Follow up with your primary care doctor Patient Language: Wolof Prescriptions: No Action melatonin 3 mg tablet 3 mg PO .qhs Qty: 30 0RF tramadol 50 mg tablet 50 mg PO Q6H PRN (Reason: pain) Qty: 30 0RF ibuprofen 800 mg tablet 800 mg PO TID PRN (Reason: pain) Qty: 30 0RF acetaminophen [Tylenol Extra Strength] 500 mg tablet 1,000 mg PO TID PRN (Reason: pain) Qty: 30 0RF oxycodone 5 mg tablet 5 mg PO Q8H PRN (Reason: pain) Qty: 14 0RF multivitamin [Daily Multi-Vitamin] Tablet 1 tablet PO DAILY docusate sodium [Colace] 100 mg capsule 100 mg PO BID Qty: 20 0RF hydrocodone-acetaminophen 5-325 mg tablet 1 tablet PO Q6H PRN (Reason: pain) Qty: 20 0RF cyclobenzaprine 10 mg tablet See Rx Instructions .ROUTE .COMPLEX Qty: 15 0RF Dose Instruction: TAKE 1 TABLET BY MOUTH 1 TIME NEEDED FOR MUSCLE SPASM Rx Instructions: TAKE 1 TABLET BY MOUTH 1 TIME NEEDED FOR MUSCLE SPASM Follow-up/Referrals: Shad Taveras MD [Primary Care Provider, Family Practice]
== END 2025-07-25 22:14 | disposition home or self-care (01) ==
PROVIDERS: PCP Family Medicine
DX: S86.911A Strain of unspecified muscle(s) and tendon(s) at lower leg level, right leg, initial encounter (principal); Z98.890 Other specified postprocedural states; M19.042 Primary osteoarthritis, left hand; Z90.49 Acquired absence of other specified parts of digestive tract; X58.XXXA Exposure to other specified factors, initial encounter
CPT/HCPCS: 93971; 99284